=== PATIENT | female | born 1995 | race African-American/Black ===

== ENCOUNTER 2021-01-31 12:38 | Emergency (ER) | payer OTHER ==
[~2021-01-31] VITALS: Ht 162.6 cm; Wt 63.6 kg
[2021-01-31 12:41] VITALS: BP 124/74
[2021-01-31] MEDS ORDERED: FERR-89 PO (12:46)
[2021-01-31] MEDS ORDERED: DEXAMETHASONE 4 MG TABLET PO ONE (14:30)
[2021-01-31] MEDS ORDERED: DiphenhydrAMINE HCL 25 MG CAPSULE PO ONE (14:30)
== END 2021-01-31 14:36 | disposition home or self-care (01) ==
LOC: EMS 12:42
DX: L50.9 Urticaria, unspecified (principal)
CPT/HCPCS: 99283; J8540